=== PATIENT | female | born 1995 | race Two or more races ===

== ENCOUNTER 2024-08-28 19:29 | Emergency (ER) | payer MEDICAID, OTHER ==
[~2024-08-28] VITALS: Ht 160 cm; Wt 119.0 kg
[2024-08-28] MEDS ORDERED: ZOFR4T PO (20:09)
[2024-08-28] MEDS ORDERED: LOPE1TAB9 PO (20:09)
--- NOTE | 2024-08-28 20:10 | ED.PDOC ---
GI ASSESSMENT HPI Comments 29-year-old female complaining of nausea vomiting diarrhea which started three days ago. States she was had one episode of vomiting today and two episodes of diarrhea today. Has been having intermittent chills. States her mother was sick with similar symptoms last week. No recent travel. She believes she took an Imodium pill today which may have helped. Chief Complaint: Flu like Time Seen by MD: 19:36 Reviewed Notes: Nurses Notes Allergies: Coded Allergies: Amoxicillin (Verified Allergy, Unknown, 08/28/24) Information Source: Patient Mode of Arrival: Ambulatory Past Medical History PAST MEDICAL HISTORY: Denies Surgical History: Denies all surgeries BETA TESTER History: No Pertinent BETA TESTER History Constitutional: denies: chills, diaphoresis, fatigue, fever, malaise, sweats, weakness, others EENTM: denies: blurred vision, double vision, ear bleeding, ear discharge, ear drainage, ear pain, ear ringing, eye pain, eye redness, hearing loss, mouth pain, mouth swelling, nasal discharge, nose bleeding, nose congestion, nose pain, photophobia, tearing, throat pain, throat swelling, voice changes, others Respiratory: denies: cough, hemoptysis, orthopnea, SOB at rest, shortness of breath, SOB with excertion, stridor, wheezing, others Cardiovascular: denies: chest pain, dizzy spells, diaphoresis, Dyspnea on exertion, edema, irregular heart beat, left arm pain, lightheadedness, palpitations, PND, syncope, others Gastrointestinal: reports: diarrhea, nausea, vomiting; denies: abdomen distended, abdominal pain, blood streaked bowels, constipated, dysphagia, difficulty swallowing, hematemesis, melena, poor appetite, poor fluid intake, rectal bleeding, rectal pain, others Genitourinary: denies: abnormal vagina bleeding, burning, dyspareunia, dysuria, flank pain, frequency, hematuria, incontinence, pain, , vagina di scharge, urgency, others Neurological: denies: dizziness, fainting, headache, left sided numbness, left sided weakness, numbness, paresthesia, pre-existing deficit, right sided numbness, right sided weakness, seizure, speech problems, tingling, tremors, weakness, others Musculoskeletal: denies: back pain, gout, joint pain, joint swelling, muscle pain, muscle stiffness, neck pain, others Integumetry: denies: bruises, change in color, change in hair/nails, dryness, laceration, lesions, lumps, rash, wounds, others Allergic/Immunocompromised: denies: Difficulty Healing, Frequent Infections, Hives, Itching, others Hematologic/Lymphatic: denies: anemia, blood clots, easy bleeding, easy bruising, swollen glands, others Physical Exam General Appearance: No Apparent Distress, Normal HEENT: Normal ENT Inspection, Pharynx Normal, TMs Normal Neck: Full Range of Motion, Non-Tender, Normal, Normal Inspection Respiratory: Chest Non-Tender, Lungs Clear, No Accessory Muscle Use, No Respiratory Distress, Normal Breath Sounds Cardiovascular: No Edema, No JVD, No Murmur, No Gallop, Normal Peripheral Pulses, Regular Rate/Rhythm Breast Exam: Deferred Gastrointestinal: No Organomegaly, Non Tender, No Pulsatile Mass, Normal Bowel Sounds, Soft Genitalia: Deferred Pelvic: Deferred Rectal: Deferred Extremities: No calf tenderness, Normal capillary refill, Normal inspection, Normal range of motion, Non-tender, No pedal edema Musculoskeletal : Apperance: Normal Neurologic: Alert, pneumatic riveter II-XII nml as Tested, No Motor Deficits, Normal Affect, Normal Mood, No Sensory Deficits Cerebellar Function: Normal Reflexes: Normal Skin: Dry, Normal Color, Warm Lymphatic: No Adenopathy Was a procedure done? Was a procedure done?: No GI differential Dx Differential Diagnosis: Cholangitis, Constipation, Gastritis/PUD, Gastroenteritis, Ischemic Bowel X-Ray, Labs, Meds, VS Vital Signs Date Time Temp Pulse Resp B/P (MAP) Pulse Ox O2 Delivery O2 Flow Rate FiO2 08/28/24 19:47 98.2 98 16 117/48 (71) 99 X-Ray, Labs, Meds, VS Comment Imaging: X-rays and CT scans were reviewed and interpreted by this provider, imaging shows no fractures and no pathological disease. Pending radiology rev iew. Laboratory: Labs reviewed and interpreted by this provider. No significant abnormalities noted. Patient has prior medical visits reviewed. Med reconciliation performed Vital signs reviewed Time of 1ST Reevaluation: 20:09 Reevaluation 1ST: Improved Patient Education/Counseling: Diagnosis, Treatment, Need For Follow Up (Patient advised to follow-up in the emergency room in the next 24 to 48 hours if symptoms do not improve. Advised follow-up with PCP in the next 3 to 5 days. Patient verbalized understanding. ) Family Education/Counseling: No Family Present Departure 1 Departure Time of Disposition: 20:07 Impression: Primary Impression: Viral gastroenteritis Disposition: HOME / SELF CARE / HOMELESS Condition: Fair e-Prescriptions Loperamide HCl (Loperamide HCl) 2 Mg Tab 2 MG PO QID PRN, #10 TAB Prov: CHRISTIANO ROBLEDO 08/28/24 Ondansetron Odt 4MG Tab (ZOFRAN PO) 4 Mg Tb 4 MG PO TID PRN, #20 TAB ODT TAB-DISSOLVE IN MOUTH, THEN SWALLOW Prov: CHRISTIANO ROBLEDO 08/28/24 Discharged With: Self Critical Care Note Critical Care Time?: No Stability Stability form required: No Heart Score Heart Score: Heart Score Response (Comments) Value History N/A 0 EKG N/A 0 Age N/A 0 Risk Factors N/A 0 Troponin N/A 0 Total 0 CHRISTIANO ROBLEDO Aug 28, 2024 20:10
[2024-08-28 21:10] VITALS: BP 145/79; PULSE 100; RESP 18; TEMP 98.7; O2SAT 100
== END 2024-08-28 21:13 | disposition home or self-care (01) ==
LOC: ER 19:29
DX: A08.4 Viral intestinal infection, unspecified (principal); Z88.1 Allergy status to other antibiotic agents